=== PATIENT | male | born 1985 | race Caucasian/White ===

== ENCOUNTER 2017-03-18 16:01 | Emergency (ER) | payer OTHER ==
[2017-03-18 16:05] VITALS: RESP 16; TEMP 98.1; O2SAT 95
--- NOTE | 2017-03-18 16:14 | EDPHY ---
H & P Stated Complaint: l testicular pain x 1 week - Personal History Current Tetanus/Diphtheria Vaccine: Yes - Medical/Surgical History Hx Asthma: No Hx Chronic Respiratory Disease: No Hx Diabetes: No Hx Cardiac Disease: No Hx Renal Disease: No Hx Cirrhosis: No Hx Alcoholism: No Hx HIV/AIDS: No Hx Splenectomy or Spleen Trauma: No Other PMH: tonsillectomy - Social History Smoking Status: Never smoked Time Seen by Provider: 03/18/17 16:12 HPI/ROS: CHIEF COMPLAINT: Left testicle pain HISTORY OF PRESENT ILLNESS: 31-year-old male arrives via private vehicle complaining of atraumatic left testicle pain for the past 5 days. Does note that he went on a long bike ride earlier that day. However there are no traumatic incidents during this bicycle ride. No dysuria no hematuria increased frequency. No trauma. No straddle injury. He also notes a chronic lesion to his left testicle which has been present for several years, nontender , non enlarging. Has never had this evaluated. PRIMARY CARE PROVIDER: REVIEW OF SYSTEMS: A ten point review of systems was performed and is negative with the exception of the items mentioned in the HPI PAST MEDICAL & SURGICAL HISTORY: No pertinent medical or surgical history SOCIAL HISTORY: Nonsmoker PHYSICAL EXAM (Prior to examination, patient consented to physical exam, hands were washed and my usual and customary physical exam procedures followed) 1) GENERAL: Well-developed, well-nourished, alert and oriented. Appears to be in no acute distress. 2) HEAD: Normocephalic, atraumatic 3) HEENT: Pupils equal, round, reactive to light bilaterally. Sclera anicteric. 4) NECK: Full range of motion, 5) LUNGS: Clear auscultation bilaterally 6) HEART: Regular rate and rhythm, no murmur, no heave, no gallop. 7) ABDOMEN: No guarding, no rebound, no focal tenderness, negative McBurney's, negative Romero's, negative Rovsing's, negative peritoneal sign, no mass no hernia 8) MUSCULOSKELETAL: Moving all extremities, no focal areas of tenderness, no obvious trauma. No peripheral edema or discoloration. 9) BACK: No CVA tenderness,. 10) SKIN: No rash, no petechiae. 11) : Normal male external genitalia, uncircumcised, no urethral discharge, bilateral cremasteric reflex present, no high-riding testicle, no evidence of cellulitis or Latonya's gangrene.. Perineum nontender. No crepitus. DIFFERENTIAL DIAGNOSIS: Testicular pain including but not limited to epididymitis, orchitis, referred pain from kidney stone, inguinal hernia, and torsion of the testicle. (Jesus Connor) Constitutional: Initial Vital Signs Temperature (C) 36.7 C 03/18/17 16:02 Heart Rate 58 L 03/18/17 16:02 Respiratory Rate 16 03/18/17 16:02 Blood Pressure 125/87 H 03/18/17 16:02 O2 Sat (%) 95 03/18/17 16:02 O2 Delivery Mode Room Air Allergies/Adverse Reactions: No Known Allergies Allergy (Unverified 03/18/17 16:02) Home Medications: Medication Instructions Recorded NK [No Known Home Meds] 03/18/17 Medical Decision Making - Diagnostics Imaging Results: Imaging Impressions Testicular Ultrasound 03/18/17 16:12 Impression: 1. Normal sonographic appearance of each testis, with no mass or torsion. 2. Mild left varicocele. 3. The area of palpable concern corresponds to a 6 mm mid-body epididymal benign cyst. Findings were discussed with Vineet Sapp M.D. at 17:15, on 03/18/2017. ED Course/Re-evaluation: 4:13 p.m.: Care of patient under supervision of secondary supervising physician Dr Sapp. Will obtain diagnostic studies, ultrasound, urinalysis and re-evaluated. At this time I think that testicular torsion is less than likely. (Jesus Connor) Other Provider: I did evaluate this patient independently. He has a small cyst in his left epididymis. Is unchanged according to him and his over the last several years and was diagnosed as a cyst several years ago. It is however slightly tender today which is unusual. He thinks it is from a long bike ride he went on a few days ago and then sitting cross-legged at the theater for several hours that night. He states that the pain is actually much better today than it had been yesterday and the day before. His urinalysis is clean. He is and denies any risk of STD. GC & Chlamydia pending. There is no swelling or erythema or tenderness. He has a normal cremasteric reflex. No discharge with milking. The patient and are eager to go home. I will have them follow up with a urologist. (Vineet Sapp) - Data Points Laboratory Results: 03/18/17 03/18/17 16:12 16:12 Urine Color YELLOW Urine Appearance CLEAR Urine pH 5.0 (5.0-7.5) Ur Specific Sp[place]y 1.021 (1.002-1.030) Urine Protein NEGATIVE (NEGATIVE) Urine Ketones NEGATIVE (NEGATIVE) Urine Blood NEGATIVE (NEGATIVE) Urine Nitrate NEGATIVE (NEGATIVE) Urine Bilirubin NEGATIVE (NEGATIVE) Urine Urobilinogen NEGATIVE EU EU (0.2-1.0) Ur Leukocyte Esterase NEGATIVE (NEGATIVE) Urine RBC 1-3 /hpf /hpf (0-3) Urine WBC 1-3 /hpf /hpf (0-3) Ur Epithelial Cells TRACE /lpf /lpf (NONE-1+) Urine Mucus TRACE /lpf /lpf (NONE-1+) Urine Glucose NEGATIVE (NEGATIVE) C.trachomatis RNA (TMA) Pending N.gonorrhoeae RNA (TMA) Pending Departure - Departure Disposition: Home, Routine, Self-Care Clinical Impression: Cyst of epididymis Condition: Good Instructions: Testicle Pain (ED) Additional Instructions: Return to the ER if you develop fever, chills, worsening pain, discharge from your penis, or any other symptoms that concern you. Referrals: Mellisa Gutierres MD [Medical Doctor] - 2-3 days, call for appt. (Dr. Gutierres is a [facility] urologist) Tu Ponce MD [Medical Doctor] - 5-7 days, call for appt.
[2017-03-18 17:34] VITALS: BP 144/84; PULSE 66
[2017-03-20 13:24] LABS: GC AMPLIFICATION GENPROBE NEGATIVE (NEGATIVE)
== END 2017-03-18 17:34 | disposition home or self-care (01) ==
DX: N50.3 Cyst of epididymis (principal)